=== PATIENT | male | born 1965 | race Caucasian/White ===

== ENCOUNTER 2019-05-10 07:56 | Emergency (ER) | payer OTHER ==
--- NOTE | 2019-05-10 09:39 | ER ---
HISTORY OF PRESENT ILLNESS: A 54-year-old male here with complaints of pain and redness noted on the inside aspect of his left lower leg. This started on Sunday. He denies any injury to this area. The patient has not been sick. The redness and tenderness have now been creeping upward and all just above the knee on the inside aspect. The patient denies any problems with fever, coughing, or recent injury to the left lower leg. OBJECTIVE: GENERAL APPEARANCE: The patient is awake and alert, in no obvious distress. VITAL SIGNS: Reviewed as listed. EXTREMITIES: Examining left lower leg reveals a faint macular rash that is linear on the inner aspect of the left leg just below the knee for several inches. Palpation of this area reveals a cord-like structure which is an inflamed vein. I can feel this up just past the joint of the knee. The patient states there is tenderness slightly farther up than that, but I cannot feel any cord-like structure above the knee is slightly warm to touch. There is no sign of blisters, pustules, or scabs. The skin is intact. DIAGNOSIS: Superficial thrombophlebitis. TREATMENT PLAN: The patient is to apply heat and use NSAIDs regularly for the next several days. His symptoms should slowly be improving. Activity should be as tolerated. Followup is [place] HANSEN/MAEGAN /[id number]
== END 2019-05-10 09:00 | disposition home or self-care (01) ==
LOC: LB.ED 07:56
DX: I80.02 Phlebitis and thrombophlebitis of superficial vessels of left lower extremity (principal)
CPT/HCPCS: 99282; 99283